=== PATIENT | male | born 1985 | race Caucasian/White ===

== ENCOUNTER 2018-08-17 14:24 | Emergency (ER) | payer BC, MEDICAID, OTHER ==
[2018-08-17 14:58] VITALS: BP 129/69
--- NOTE | 2018-08-17 15:55 | EDM.PDOC ---
ED HPI GENERAL MEDICAL PROBLEM - General Chief Complaint: Upper Extremity Injury/Pain Stated Complaint: right hand crush injury Time Seen by Provider: 08/17/18 15:04 Source of Information: Reports: Patient History Limitations: Reports: No Limitations - History of Present Illness INITIAL COMMENTS - FREE TEXT/NARRATIVE: Patient sent to ER from [facility] for evaluation of his right little finger. Has pain/swelling after it was caught in a machine while he was trying to loosen a jam. Only complains of discomfort involving the 5th finger. 4th finger has small dorsal laceration but is non-tender. He denies other injuries. 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 Right Hand Pain Score (Numeric/FACES): 4 - Related Data Allergies Allergy/AdvReac Type Severity Reaction Status Date / Time Penicillins Allergy Hives Verified 02/18/18 12:22 Fake metals Allergy Rash Uncoded 08/17/18 14:25 Home Meds: Home Meds Multivits,Ca,Min/Iron/FA/Lycop [Men Under 50 Multivitamin Tab] 1 each PO DAILY 02/18/18 [History] Ranitidine [Zantac] 150 mg PO DAILY 02/18/18 [History] Clindamycin HCl 150 mg PO ASDIRECTED 08/17/18 [History] Past Medical History HEENT History: Reports: Otitis Media Cardiovascular History: Reports: Other (See Below) Other Cardiovascular History: RBBB, heart murmur as child Respiratory History: Reports: Other (See Below) Other Respiratory History: pneumonia at infant age Gastrointestinal History: Reports: Gastritis, GERD Musculoskeletal History: Reports: Fracture - Infectious Disease History Infectious Disease History: Reports: Chicken Pox - Past Surgical History HEENT Surgical History: Reports: Adenoidectomy, Myringotomy w Tube(s), Tonsillectomy GI Surgical History: Reports: Cholecystectomy, Hernia, Inguinal Musculoskeletal Surgical History: Reports: Shoulder Surgery Social & Family History - Family History Family Medical History: Noncontributory - Tobacco Use Smoking Status *Q: Current Every Day Smoker Years of Tobacco use: 16 Packs/Tins Daily: 1 - Caffeine Use Caffeine Use: Reports: Soda - Alcohol Use Alcohol Use History: Yes Alcohol Use Frequency: Socially - Recreational Drug Use Recreational Drug Use: No Review of Systems - Review of Systems Review Of Systems: See Below Constitutional: Reports: No Symptoms Eyes: Reports: No Symptoms Ears: Reports: No Symptoms Nose: Reports: No Symptoms Mouth/Throat: Reports: No Symptoms Respiratory: Reports: No Symptoms. Denies: Shortness of Breath Cardiovascular: Reports: No Symptoms. Denies: Chest Pain GI/Abdominal: Reports: No Symptoms Genitourinary: Reports: No Symptoms Musculoskeletal: Reports: Other (right 5th finger discomfort. ) Skin: Reports: Bruising (small bruise distal 5th finger dorsally), Wound (small laceration dorsal 4th finger right hand) Neurological: Reports: No Symptoms Psychiatric: Reports: No Symptoms ED EXAM, GENERAL - Physical Exam Exam: See Below Exam Limited By: No Limitations General Appearance: Alert, WD/WN, No Apparent Distress Eye Exam: Bilateral Eye: EOMI, PERRL Throat/Mouth: Normal Voice, No Airway Compromise Head: Atraumatic, Normocephalic Neck: Supple Respiratory/Chest: No Respiratory Distress, Lungs Clear, Normal Breath Sounds, No Accessory Muscle Use Cardiovascular: No Murmur, Irregularly Irregular Peripheral Pulses: 2+: Radial (L), Radial (R) GI/Abdominal: Soft, Non-Tender (Male) Exam: Deferred Rectal (Males) Exam: Deferred Back Exam: No: CVA Tenderness (L), CVA Tenderness (R), Muscle Spasm Extremities: Other (mild swelling noted of right 5th finger, no deformity. Small bruise noted at base of fingernail. Small amount dried blood noted at edge of nail but nail appears intact. Tendon function appears to be intact, patient can extend/flex digit but has some limitation due to discomfort and swelling. 4th finger has small laceration (not requiring sutures) dorsally, but is non-tender. No deformity noted when examing rest of fingers/hand. ) Neurological: Alert, Oriented, No Motor/Sensory Deficits Psychiatric: Normal Affect, Normal Mood Skin Exam: Warm, Dry, Normal Color ED TRAUMA EXTREMITY PROCEDURES - Splinting Right 5th Digit Pre-Procedure NV Status: Normal Post-Procedure NV Status: Normal Splint Material: Aluminum-Foam Applied & Form Fitted By: Nurse Provider Post-Splint Application NV Check: NV Status Normal, Good Position Complications: No EKG INTERPRETATION EKG Date: 08/17/18 Time: 15:14 Rhythm: Other (sinus rhythm) Rate (Beats/Min): 84 [place]: Normal P-Wave: Present QRS: RBBB ST-T: Other (no obvious elevation/depression suggestive of acute ischemia) QT: Normal Comparison: Other: (prior EKG showed RBBB with PVCs Jan 2018) Course - Vital Signs Last Recorded V/S: Last Vital Signs Temp 36.8 C 08/17/18 14:25 Pulse 39 L 08/17/18 14:25 Resp 15 08/17/18 14:25 BP 129/69 08/17/18 14:25 Pulse Ox 100 08/17/18 14:25 - Orders/Labs/Meds Orders: Active Orders 24 hr Category Date Time Status Vaccines to be Administered [RC] PER UNIT ROUTINE Care 08/17/18 16:15 Active Fingers Fifth Digit Rt F9 [CR] Stat Exams 08/17/18 14:43 Taken Labs: Laboratory Tests 08/17/18 08/17/18 08/17/18 Range/Units 15:31 15:31 15:31 WBC 9.1 (4.0-10.2) K/uL RBC 4.61 (4.33-5.41) M/uL Hgb 15.0 (13.1-16.8) g/dL Hct 43.5 (39.0-49.0) % MCV 94.4 (84.0-98.0) fL MCH 32.5 (28.2-33.3) pg MCHC 34.5 (31.7-36.0) g/dL RDW 13.0 (11.2-14.1) % Plt Count 241 (150-350) K/uL Neut % (Auto) 58.2 (45.0-80.0) % Lymph % (Auto) 28.8 (10.0-50.0) % [place] % (Auto) 10.6 (2.0-14.0) % Eos % (Auto) 2.1 (0.0-5.0) % Baso % (Auto) 0.3 (0.0-2.0) % Neut # (Auto) 5.29 (1.40-7.00) K/uL Lymph # (Auto) 2.62 (0.50-3.50) K/uL [place] # (Auto) 0.96 (0.00-1.00) K/uL Eos # (Auto) 0.19 (0.00-0.50) K/uL Baso # (Auto) 0.03 (0.00-0.20) K/uL Sodium 142 (136-145) mmol/L Potassium 4.7 (3.5-5.1) mmol/L Chloride 102 (98-107) mmol/L Carbon Dioxide 29.3 (21.0-32.0) mmol/L BUN 13 (7-18) mg/dL Creatinine 0.81 (0.51-1.17) mg/dL Est Cr Clr Drug Dosing 136.03 mL/min Estimated GFR (MDRD) > 60 mL/min Glucose 94 (74-106) mg/dL Calcium 9.4 (8.5-10.1) mg/dL Magnesium 2.1 (1.8-2.4) mg/dL Total Bilirubin 0.5 (0.2-1.0) mg/dL AST 23 (15-37) U/L ALT 38 (12-78) U/L Alkaline Phosphatase 98 (46-116) IU/L NT-Pro-B Natriuret Pep 180 H (0-125) pg/mL Total Protein 7.7 (6.4-8.2) g/dL Albumin 4.2 (3.4-5.0) g/dL Meds: Medications Discontinued Medications Generic Name Dose Route Start Last Admin Trade Name Freq PRN Reason Stop Dose Admin Diphtheria/Tetanus/Acell Pertussis 0.5 ml 08/17/18 16:15 Adacel IM 08/17/18 16:16 .ONCE ONE - Radiology Interpretation Free Text/Narrative:: Xray of finger: no obvious fracture noted. Radiology to review. - Re-Assessments/Exams Free Text/Narrative Re-Assessment/Exam: 08/17/18 16:10 No obvious fracture noted on xray. Finger placed in prefabricated finger splint for protection. Noted upon intake that patient appeared to have very slow pulse in high 30s. Placed on monitor. Frequent PVCs noted. EKG ordered which showed RBBB and numerous PVCs. An old EKG from last fall was located which also showed a similar pattern. Patient denies having any previous diagnosis of heart disease/arrhythmia. Had a murmur noted in childhood. No murmur noted today. He says that sometimes he feels his heart "beating fast", but is unaware of the frequent PVCs noted while a patient in the ER. He denies having chest pains/SOB/exercise intolerance. Overall he feels healthy. Smoker. Socially uses ETOH several times a week but denies drinking in excess. A copy of the patient's current/previous EKG were faxed to [facility]. Reviewed patient with Dr. Salinas from Cardiology. He recommended patient arrange a follow up appointment and be evaluated for underlying cardiac disease given the rhythm. This was conveyed to the patient. He was instructed to contact his primary provider tomorrow morning and arrange for Cardiology referral. He is to follow up as needed for the finger injury. He is to follow up for any chest pain/SOB Tetanus updated Departure - Departure Time of Disposition: 16:25 Disposition: Home, Self-Care 01 Condition: Good Clinical Impression: Crushing injury of finger of right hand, Right bundle branch block (RBBB), Frequent PVCs, Elevated brain natriuretic peptide (BNP) level - Discharge Information *PRESCRIPTION DRUG MONITORING PROGRAM REVIEWED*: Not Applicable *COPY OF PRESCRIPTION DRUG MONITORING REPORT IN PATIENT MATTHEW: Not Applicable Instructions: Right Bundle Branch Block, Premature Ventricular Contraction, Crush Injury of the Hand, [id number] Referrals: Henrietta Albrecht MD [Primary Care Provider] - Forms: ED Department Discharge Additional Instructions: Call your primary provider tomorrow and tell them that you need a referral to Cardiology. We spoke to today from [facility]. He recommends that you see them as we discussed in the ER. Avoid large amounts of caffeine as that can make PVCs more frequent. Wear your finger splint at work for the next 5-7 days to protect the finger. You may use it as needed after that. If you are unable to fully extend/flex finger within a week, follow up with your primary provider for a recheck. If bruising under the fingernail worsens and pain is noted to worsen, you will need to return to the ER to have the bruise under the nail drained. Follow up otherwise as needed. - My Orders Last 24 Hours: My Active Orders 08/17/18 14:43 Fingers Fifth Digit Rt F9 [CR] Stat 08/17/18 16:15 Vaccines to be Administered [RC] PER UNIT ROUTINE - Assessment/Plan Last 24 Hours: My Active Orders 08/17/18 14:43 Fingers Fifth Digit Rt F9 [CR] Stat 08/17/18 16:15 Vaccines to be Administered [RC] PER UNIT ROUTINE
[2018-08-17 16:03] LABS: CHLORIDE,CL 102 mmol/L (98-107); SODIUM,NA 142 mmol/L (136-145)
[2018-08-17] MEDS ORDERED: Diphtheria,Pertussis(Acell),Tetanus Vaccine 0.5 ML SDV IM ONE (16:15)
== END 2018-08-17 16:30 | disposition home or self-care (01) ==
LOC: LL.ED 14:24 → MERGE 14:24 → LL.ED 16:30
DX: S67.196A Crushing injury of right little finger, initial encounter (principal); R79.89 Other specified abnormal findings of blood chemistry; F17.210 Nicotine dependence, cigarettes, uncomplicated; I45.10 Unspecified right bundle-branch block; I49.3 Ventricular premature depolarization; W23.1XXA Caught, crushed, jammed, or pinched between stationary objects, initial encounter; Z79.899 Other long term (current) drug therapy
CPT/HCPCS: 36415; 73140-F9; 80053; 83735; 83880; 85025; 90471; 90715; 99284-25